=== PATIENT | female | born 1950 | race Caucasian/White ===

== ENCOUNTER → 2018-08-22 | Outpatient (CLI) | payer OTHER ==
[~2018-08-22] MED LIST: Adipex-P37.5 M1 PO; Ambien10 MG PO; Aspir-Low81 MG PO; ESCI5 PO; Estrace Vagin42.5 GM; HYDPAM25 PO; LEVO-T125 MCG PO; METHI10 PO; METO25ER PO; MONT10T PO; Naproxen250 MG PO; OXYC5; STOOL SOFTENER100 MG PO; SULTRIDS PO; TOPI25 PO; VITAMINS; ZOLP10; Zovirax Cream 5%2 GM
== END ==
LOC: LAB 10:30 → LAB SHORT 10:30
DX: Z02.6 Encounter for examination for insurance purposes (principal); L03.116 Cellulitis of left lower limb
CPT/HCPCS: 87070; 87075; 87205

== ENCOUNTER → 2019-02-03 | Outpatient (CLI) | payer OTHER | END | disposition home or self-care (01) | LOC: PLD 11:57 → LAB SHORT 11:57 | DX: D48.5 Neoplasm of uncertain behavior of skin (principal) | CPT/HCPCS: 88305 ==

== ENCOUNTER → 2019-12-09 | Outpatient (CLI) | payer OTHER | END | disposition home or self-care (01) | LOC: LAB SHORT 15:26 → LAB EV 15:26 | DX: N39.0 Urinary tract infection, site not specified (principal) | CPT/HCPCS: 87077; 87086; 87186 ==

== ENCOUNTER 2020-03-14 07:29 | Day surgery (SDC) | payer OTHER ==
[~2020-03-14] VITALS: Ht 160 cm; Wt 101.7 kg
[~2020-03-14 07:29] MED LIST changes: -LEVO-T125 MCG PO; +LEVSOD112 PO; +OMEP20ER PO
[2020-03-14] MEDS ORDERED: BUPR75 PO (08:14)
--- NOTE | 2020-03-14 08:17 | NUR ---
03/14/20 0817 Swapna Garrido FIRST IV ATTEMPT IN HAND NOT SUCCESSFUL. IV STARTED IN RIGHT AC BY ERNESTO.
== END 2020-03-14 09:35 | disposition home or self-care (01) ==
LOC: ORSCSDS 07:29
PROVIDERS: Internal Medicine Gastroenterology
PROC: 0DB68ZX Excision of Stomach, Via Natural or Artificial Opening Endoscopic, Diagnostic (ICD-10-PCS; 2020-03-14)
PROC: 0DB58ZX Excision of Esophagus, Via Natural or Artificial Opening Endoscopic, Diagnostic (ICD-10-PCS; 2020-03-14)
PROC: 0D758ZZ Dilation of Esophagus, Via Natural or Artificial Opening Endoscopic (ICD-10-PCS; principal; 2020-03-14 08:45)
DX: R13.10 Dysphagia, unspecified (principal); R06.00 Dyspnea, unspecified; K21.9 Gastro-esophageal reflux disease without esophagitis; F41.9 Anxiety disorder, unspecified; G47.33 Obstructive sleep apnea (adult) (pediatric); E66.9 Obesity, unspecified; Z68.39 Body mass index [BMI] 39.0-39.9, adult; Z79.82 Long term (current) use of aspirin; Z79.899 Other long term (current) drug therapy
CPT/HCPCS: 88305; 88342; J2704; J7120

== ENCOUNTER → 2021-05-16 | Outpatient (CLI) | payer OTHER ==
[~2021-05-16] MED LIST changes: +BUPR75 PO
== END | disposition home or self-care (01) ==
LOC: LAB SHORT 07:53
DX: D22.62 Melanocytic nevi of left upper limb, including shoulder (principal)
CPT/HCPCS: 88305

== ENCOUNTER 2021-10-03 12:30 | Day surgery (SDC) | payer OTHER ==
[~2021-10-03] VITALS: Ht 160 cm; Wt 102.1 kg
[~2021-10-03 12:30] MED LIST changes: +ANORO ELLIPTA1 EACH INH; +CALCIUM CARBON650 MG PO; +EC-NAPROXEN375 MG PO; +FISH OIL 1,2001 EAC1 PO; +Flonase 0.05% N16 GM; +GALZIN25 MG PO; +HYDCHL25 PO; +MERIBIN5 MG PO; +MULTIPLE VITAM1 EACH PO; +NUVIGIL150 MG; +THERA-D2000 UNIT PO; +Vitamin B-1250 MCG PO; +[UNRECOGNIZED DRUG - OTHER] PO
[2021-10-03] MEDS ORDERED: SPIR50 (12:44)
--- NOTE | 2021-10-03 15:35 | NUR ---
10/03/21 1535 BRIAN GALLARDO VO HURRICAIN SPRAY AND ADMINISTERED TO PT HIMSELF AND ORDERED PT HELD FOR OBSERVATION MINIMUM .5HR END NOTE [email or web address]
== END 2021-10-03 15:49 | disposition home or self-care (01) ==
LOC: ORSCSDS 12:30
DX: R13.14 Dysphagia, pharyngoesophageal phase (principal); K44.9 Diaphragmatic hernia without obstruction or gangrene; K29.60 Other gastritis without bleeding; D12.2 Benign neoplasm of ascending colon; D12.3 Benign neoplasm of transverse colon; K63.5 Polyp of colon; K57.30 Diverticulosis of large intestine without perforation or abscess without bleeding; Z86.010 Personal history of colon polyps; F90.9 Attention-deficit hyperactivity disorder, unspecified type; E05.90 Thyrotoxicosis, unspecified without thyrotoxic crisis or storm; G47.33 Obstructive sleep apnea (adult) (pediatric); J44.9 Chronic obstructive pulmonary disease, unspecified; E66.01 Morbid (severe) obesity due to excess calories; Z68.39 Body mass index [BMI] 39.0-39.9, adult; F41.8 Other specified anxiety disorders; Z79.899 Other long term (current) drug therapy
CPT/HCPCS: 88305; 88342; A9270; J2704; J7120

== ENCOUNTER → 2022-06-28 | Outpatient (CLI) | payer OTHER ==
[~2022-06-28] MED LIST changes: +METPRE4DP PO; +SPIR50; +Toprol Xl25 MG PO
== END | disposition home or self-care (01) ==
LOC: LAB SHORT 18:17 → LAB 18:17
DX: N39.0 Urinary tract infection, site not specified (principal)
CPT/HCPCS: 87077; 87086; 87186